=== PATIENT | female | born 1995 | race Asian ===

== ENCOUNTER 2022-02-19 01:31 | Outpatient (CLI) | payer OTHER ==
[~2022-02-19] VITALS: Ht 152.4 cm; Wt 84.9 kg
[2022-02-19] VITALS (19 sets, daily range): BP systolic 98–129; BP diastolic 53–74
[2022-02-19 02:32] LABS: HEMATOCRIT 37.5 % (36.0-47.0); HEMOGLOBIN 12.3 g/dl (12.0-15.5); MEAN CORPUSCULAR HEMOGLOBIN 28.1 pg (27.0-33.0); MEAN CORPUSCULAR HGB CONC 32.8 g/dl (32.0-36.5); MEAN CORPUSCULAR VOLUME 85.8 fl (80.0-96.0); PLATELET COUNT, AUTOMATED 286 10^3/uL (150-450); RED BLOOD COUNT 4.37 10^6/uL (4.00-5.40); WHITE BLOOD COUNT 9.8 10^3/uL (4.0-10.0)
[2022-02-19 02:44] LABS: INR 0.91; PROTHROMBIN TIME 12.5 SECONDS (12.5-14.5)
[2022-02-19] MEDS ORDERED: LR 1,000 ML IV SCH (04:35)
[2022-02-19] MEDS ORDERED: CALCIUM GLUCONATE 1,000 MG in D5W MINI-BAG PLUS 100 ML IV PRN (04:35)
[2022-02-19] MEDS ORDERED: MAG Sulf (L&D) 4 GM/100 ML 4 GM in IV 1 EA IV ONE (04:35)
[2022-02-19] MEDS ORDERED: MAG Sulf (OBGYN) 20GM/500ML 20,000 MG in IV 1 EA IV SCH (04:55)
[2022-02-19] MEDS ORDERED: BETAMETHASONE SOLUSPAN 6MG/ML 5ML VIAL (J0702 PER 3MG) IM SCH (05:00)
[2022-02-19] MEDS ORDERED: NIFEdipine 10 MG CAP PO SCH (05:00)
[2022-02-19 05:03] LABS: ALKALINE PHOSPHATASE 67 U/L (46-116); ALT/SGPT 15 U/L (7.0-40); AST/SGOT 14 U/L (<34); BILIRUBIN,TOTAL 0.4 MG/DL (0.3-1.2); BLOOD UREA NITROGEN 10 MG/DL (9-23); CALCIUM LEVEL 8.6 MG/DL (8.5-10.1); CARBON DIOXIDE LEVEL 18 MMOL/L (20-31); CHLORIDE LEVEL 107 MMOL/L (98-107); CREATININE FOR GFR 0.39 MG/DL (0.55-1.30); GLOMERULAR FILTRATION RATE > 60.0 (>60); GLUCOSE, FASTING 86 MG/DL (60-100); POTASSIUM SERUM 3.9 MMOL/L (3.5-5.1); SODIUM LEVEL 138 MMOL/L (136-145); TOTAL PROTEIN 6.3 G/DL (5.7-8.2)
[2022-02-19] MEDS ORDERED: PRENTAB9 PO (05:11)
[2022-02-19 05:38] LABS: APPEARANCE, URINE MANUAL CLEAR (CLEAR); COLOR, URINE MANUAL YELLOW (YELLOW)
[2022-02-19 05:41] LABS: BILIRUBIN, URINE MANUAL NEGATIVE (NEGATIVE); BLOOD URINE MANUAL POSITIVE (NEGATIVE); GLUCOSE, URINE (UA) MANUAL NEGATIVE (NEGATIVE); KETONE, URINE MANUAL NEGATIVE (NEGATIVE); LEUKOCYTE ESTERASE, URINE MAN NEGATIVE (NEGATIVE); NITRITE, URINE MANUAL NEGATIVE (NEGATIVE); PROTEIN, URINE MANUAL NEGATIVE (NEGATIVE); UROBILINOGEN, URINE MANUAL NORMAL (NORMAL)
[2022-02-19 05:44] LABS: SQUAMOUS EPITHELIAL CELL URINE SMALL AMOUNT /hpf (SMALL AMT); WBC, URINE 0-1 /hpf (0-3)
[2022-02-19 05:45] LABS: BACTERIA, URINE NONE SEEN; HYALINE CAST, URINE NONE SEEN /lpf (0-1); MUCUS, URINE SMALL AMOUNT (NEGATIVE)
[2022-02-19] MEDS ORDERED: FLUCONAZOLE 50MG TABLET PO ONE (05:55)
[2022-02-19] MEDS ORDERED: ACETAMINOPHEN 500 MG TAB PO PRN (05:55)
[2022-02-19 07:30] LABS: GC DNA AMPLIFICATION NEGATIVE (NEGATIVE)
[2022-02-19] MEDS ORDERED: HOME MED LIST COMPLETE! XX SCH (08:10)
== END 2022-02-19 10:45 | disposition short-term general hospital (02) ==
LOC: M LDO 01:31
PROVIDERS: ATTEND Obstetrics & Gynecology
DX: O44.33 Partial placenta previa with hemorrhage, third trimester (principal); Z3A.31 31 weeks gestation of pregnancy; O60.03 Preterm labor without delivery, third trimester; O23.593 Infection of other part of genital tract in pregnancy, third trimester
CPT/HCPCS: 36415; 59025; 76815; 76820; 80053; 81000; 81015; 85027; 85384; 85610; 85730; 87081; 87635; 87810; 87850; 96360; 96361; G0463; J0702; J3475

== ENCOUNTER 2022-03-29 05:37 | Inpatient (IN) | payer OTHER ==
[~2022-03-29] VITALS: Ht 152.4 cm; Wt 85.2 kg
[2022-03-29] VITALS (9 sets, daily range): BP systolic 113–155; BP diastolic 57–92
[~2022-03-29 05:37] MED LIST: PRENTAB9 PO
[2022-03-29] MEDS ORDERED: ceFAZolin SOD 2 GM in IV 1 EA IV ONE (06:00)
[2022-03-29] MEDS ORDERED: BICITRA 30ML SOLN UDC PO ONE (06:00)
[2022-03-29] MEDS ORDERED: LR 1,000 ML IV ONE (06:00)
[2022-03-29 06:52] LABS: HEMATOCRIT 38.9 % (36.0-47.0); HEMOGLOBIN 12.4 g/dl (12.0-15.5); MEAN CORPUSCULAR HEMOGLOBIN 27.4 pg (27.0-33.0); MEAN CORPUSCULAR HGB CONC 31.9 g/dl (32.0-36.5); MEAN CORPUSCULAR VOLUME 85.9 fl (80.0-96.0); PLATELET COUNT, AUTOMATED 263 10^3/uL (150-450); RED BLOOD COUNT 4.53 10^6/uL (4.00-5.40)
[2022-03-29] MEDS ORDERED: LR 1,000 ML IV SCH ×2 (07:00→09:00)
[2022-03-29 07:35] LABS: HEPATITIS B SURFACE ANTIGEN NEGATIVE (NEGATIVE)
[2022-03-29] MEDS ORDERED: HOME MED LIST COMPLETE! XX SCH (07:40)
[2022-03-29] MEDS ORDERED: MORPHINE PRES-FREE INJ 10 MG/10 ML VIAL As Ordered ONE (07:55)
[2022-03-29] MEDS ORDERED: OXYTOCIN 30UNITS IN 0.9% NaCl 500ML IV BAG As Ordered ONE ×2 (07:59→09:24)
[2022-03-29] MEDS ORDERED: ACETAMINOPHEN 1000MG 100ML IV BAG As Ordered ONE (07:59)
[2022-03-29] MEDS ORDERED: ONDANSETRON 4MG 2ML VIAL As Ordered ONE (07:59)
[2022-03-29] MEDS ORDERED: KETOROLAC 60MG 2ML VIAL As Ordered ONE (07:59)
[2022-03-29] MEDS ORDERED: PHENYLephrine 500MCG 5ML (100MCG/ML) SYRINGE As Ordered ONE (08:06)
[2022-03-29] MEDS ORDERED: ePHEDrine SULFATE 25 MG/5 ML(5MG/ML) SYRINGE As Ordered ONE (08:07)
[2022-03-29] MEDS: SLF 3 ML SYR IV SCH ×2 (09:00→17:00)
[2022-03-29] MEDS ORDERED: fentaNYL 100 MCG/2 ML INJECTION IV PRN (09:00)
[2022-03-29] MEDS: PRENATAL VITAMINS CHEWABLE TABLET PO SCH (09:00)
[2022-03-29] MEDS: DOCUSATE SODIUM 100MG CAPSULE PO SCH ×2 (09:00→21:29)
[2022-03-29] MEDS ORDERED: ONDANSETRON 4MG 2ML VIAL IV PRN ×3 (09:00→09:10)
[2022-03-29] MEDS ORDERED: **NOTE PATIENT COMMENT** MISC XX SCH (09:00)
[2022-03-29] MEDS ORDERED: METOCLOPRAMIDE INJ 10MG/2ML VIAL IV PRN ×2 (09:00)
[2022-03-29] MEDS ORDERED: diphenhydrAMINE 50MG/ML VIAL IV PRN (09:00)
[2022-03-29] MEDS ORDERED: NALOXONE INJ 0.4MG/1ML VIAL IV PRN ×2 (09:00)
[2022-03-29] MEDS ORDERED: oxyCODONE 5MG TAB PO PRN ×3 (09:00→09:10)
[2022-03-29] MEDS ORDERED: PROMETHAZINE 25MG/ML 1ML VIAL IV PRN (09:00)
[2022-03-29] MEDS ORDERED: MEPERIDINE INJ 25 MG/ML VIAL IV PRN (09:00)
[2022-03-29] MEDS ORDERED: METHYLERGONOVINE MALEATE 0.2 MG TAB PO PRN (09:10)
[2022-03-29] MEDS ORDERED: RHOGAM 300MCG (1500IU) INJ IM SCH (09:10)
[2022-03-29] MEDS ORDERED: OXYTOCIN DRIP 30 UNITS in IV 1 EA IV SCH ×4 (09:10)
[2022-03-29] MEDS ORDERED: MOM 30ML SUSPENSION UDC PO PRN (09:10)
[2022-03-29] MEDS ORDERED: METHYLERGONOVINE MALEATE 0.2 MG/ML VIAL (J2210) IM PRN (09:10)
[2022-03-29] MEDS: LR 1,000 ML IV SCH ×2 (09:31→18:46)
[2022-03-29] MEDS ORDERED: diphenhydrAMINE 50MG/ML VIAL As Ordered ONE (09:39)
[2022-03-29] MEDS ORDERED: oxyCODONE 5MG TAB As Ordered ONE (10:43)
[2022-03-29] MEDS: KETOROLAC 30 MG/ML 1ML VIAL IV SCH ×2 (15:40→21:29)
[2022-03-29] MEDS: ACETAMINOPHEN 500 MG TAB PO PRN (20:04)
[2022-03-30] MEDS: SLF 3 ML SYR IV SCH (01:00)
[2022-03-30 02:00] VITALS: BP 118/60
[2022-03-30] MEDS: LR 1,000 ML IV SCH ×3 (02:26→17:10)
[2022-03-30] MEDS: KETOROLAC 30 MG/ML 1ML VIAL IV SCH (03:25)
[2022-03-30 06:00] VITALS: BP 119/57
[2022-03-30 07:44] LABS: HEMATOCRIT 28.2 % (36.0-47.0); MEAN CORPUSCULAR HGB CONC 31.9 g/dl (32.0-36.5); MEAN CORPUSCULAR VOLUME 87.9 fl (80.0-96.0); PLATELET COUNT, AUTOMATED 215 10^3/uL (150-450); RED BLOOD COUNT 3.21 10^6/uL (4.00-5.40)
[2022-03-30] MEDS: SIMETHICONE 80MG CHEW TAB PO PRN ×2 (08:57→18:38)
[2022-03-30] MEDS: DOCUSATE SODIUM 100MG CAPSULE PO SCH ×2 (08:57→20:45)
[2022-03-30] MEDS: PRENATAL VITAMINS CHEWABLE TABLET PO SCH (08:57)
[2022-03-30 10:00] VITALS: BP 118/72
[2022-03-30] MEDS: IBUPROFEN 800 MG TAB PO SCH ×2 (10:58→18:39)
[2022-03-30 14:00] VITALS: BP 119/65
[2022-03-30 18:00] VITALS: BP 135/98
[2022-03-30] MEDS: ACETAMINOPHEN 500 MG TAB PO PRN (21:08)
[2022-03-30 22:00] VITALS: BP 121/58
[2022-03-31 02:00] VITALS: BP 121/68
[2022-03-31] MEDS: IBUPROFEN 800 MG TAB PO SCH ×2 (02:47→11:12)
[2022-03-31 06:00] VITALS: BP 129/80
[2022-03-31] MEDS: PRENATAL VITAMINS CHEWABLE TABLET PO SCH (08:38)
[2022-03-31] MEDS: SIMETHICONE 80MG CHEW TAB PO PRN (08:38)
[2022-03-31] MEDS: DOCUSATE SODIUM 100MG CAPSULE PO SCH (08:38)
[2022-03-31] MEDS ORDERED: medroxyPROGESTERone ACET IM SUSP 150 MG/ML VIAL IM ONE (09:00)
[2022-03-31] MEDS ORDERED: MEASLES,MUMPS,RUBELLA VACCINE INJ (MMR-II) SC.IMMUN ONE (09:00)
== END 2022-03-31 12:50 | disposition home or self-care (01) | DRG 773 ==
LOC: M LDI 05:37 → M OBS 11:07
PROVIDERS: ADMIT Obstetrics & Gynecology; ATTEND Obstetrics & Gynecology
PROC: 10D00Z1 Extraction of Products of Conception, Low, Open Approach (ICD-10-PCS; principal; 2022-03-29 07:30)
DX: O44.03 Complete placenta previa NOS or without hemorrhage, third trimester (principal); Z3A.36 36 weeks gestation of pregnancy; Z37.0 Single live birth